=== PATIENT | female | born 1990 | race African-American/Black ===

== ENCOUNTER 2016-11-06 13:40 | Emergency (ER) | payer SELFPAY ==
[~2016-11-06] VITALS: Ht 154.9 cm; Wt 54.4 kg
[2016-11-06 14:09] VITALS: BP 143/87
--- NOTE | 2016-11-06 14:44 | RAD ---
Left foot 3 views. History: Left foot injury, pain 3 views were taken of the left foot. There is not evidence of acute fracture or osseous abnormality. Impression: 1. Negative left foot.
[2016-11-06] MEDS ORDERED: IBUPROFEN 800 MG TABLET. PO ONE (14:45)
--- NOTE | 2016-11-06 14:45 | RAD ---
Left ankle 3 views. History: Pain after a fall 3 views were taken of the left ankle. There is not evidence of an acute fracture or osseous abnormality. Impression: 1. No fracture noted in the left ankle.
--- NOTE | 2016-11-06 14:48 | PHYS DOC ---
Past Medical History Past Medical History: No Pertinent History Past Surgical History: No Surgical History Alcohol Use: Occasionally Drug Use: None Adult General Chief Complaint Chief Complaint: FOOT INJURY PAIN HPI HPI Patient is a 26 year old female presents to the emergency department stating that she was wearing 7inch heels and fell last night when she fell injuring her left foot in her left ankle. Patient is very dramatic upon entering the emergency department yelling screaming and carrying on. Patient is not allowing the nursing staff to obtain assessment in triage. Patient was belligerent with staff. Very uncooperative with nursing staff. Patients boyfriend at bedside attempting to calm patient with patient being belligerent with him. Review of Systems Review of Systems Constitutional: Denies fever or chills [] Eyes: Denies change in visual acuity, redness, or eye pain [] HENT: Denies nasal congestion or sore throat [] Respiratory: Denies cough or shortness of breath [] Cardiovascular: No additional information not addressed in HPI [] GI: Denies abdominal pain, nausea, vomiting, bloody stools or diarrhea [] : Denies dysuria or hematuria [] Musculoskeletal: Denies back pain. Left ankle and foot pain Integument: Denies rash or skin lesions [] Neurologic: Denies headache, focal weakness or sensory changes [] Endocrine: Denies polyuria or polydipsia [] Current Medications Current Medications Current Medications Medications (Trade) Dose Ordered Sig/[facility] Start Time Stop Time Status Last Admin Dose Admin Ibuprofen (Motrin) 800 mg 1X ONCE 11/06/16 14:45 11/06/16 14:46 DC 11/06/16 14:57 800 MG Allergies Allergies Allergies Coded Allergies Type Severity Reaction Last Updated Verified No Known Drug Allergies 11/06/16 No Physical Exam Physical Exam Constitutional: Well developed, well nourished, no acute distress, non-toxic appearance. [] HENT: Normocephalic, atraumatic, bilateral external ears normal, oropharynx moist, no oral exudates, nose normal. [] Eyes: PERRLA, EOMI, conjunctiva normal, no discharge. [] Neck: Normal range of motion, no tenderness, supple, no stridor. [] Cardiovascular:Heart rate regular rhythm, no murmur [] Lungs & Thorax: Bilateral breath sounds clear to auscultation [] Skin: Warm, dry, no erythema, no rash. [] Extremities: Left foot and Left ankle tenderness, no cyanosis, no clubbing, ROM intact, no edema. Patient with no redness, no swelling or discoloration noted. Patient is able to lift her leg up and move the leg from the knee area and swinging around in the emergency department. Peripheral pulses 2+ cap refill brisk less than 2 seconds. Patient does have good sensation to the toes. Neurologic: Alert and oriented X 3, normal motor function, normal sensory function, no focal deficits noted. [] Psychologic: Affect normal, judgement normal, mood normal. [] Current Patient Data Vital Signs Vital Signs Date Time Temp Pulse Resp B/P (MAP) Pulse Ox O2 Delivery O2 Flow Rate FiO2 11/06/16 14:09 98.0 94 24 100 Room Air 98.0 EKG EKG [] Radiology/Procedures Radiology/Procedures [][facility] [address] [place] [address] IMAGING REPORT Signed PATIENT: LEE OROZCO ACCOUNT: [id number] : 1990 LOCATION: ER AGE: 26 SEX: F EXAM STATUS: PRE ER ORD. PHYSICIAN: KY MENDOZA APRN REASON: fell in 7 inch heels PROCEDURE: ANKLE LEFT 3V Left ankle 3 views. History: Pain after a fall 3 views were taken of the left ankle. There is not evidence of an acute fracture or osseous abnormality. Impression: 1. No fracture noted in the left ankle. DICTATED and SIGNED BY: NITHIN HICKEY MD DATE: 11/06/16 1442 CC: KY MENDOZA APRN ~ [facility] [address] [place] [address] IMAGING REPORT Signed PATIENT: LEE OROZCO Jessica ACCOUNT: [id number] : 1990 LOCATION: ER AGE: 26 SEX: F EXAM STATUS: PRE ER ORD. PHYSICIAN: KY MENDOZA APRN REASON: left foot injury PROCEDURE: FOOT LEFT 3V Left foot 3 views. History: Left foot injury, pain 3 views were taken of the left foot. There is not evidence of acute fracture or osseous abnormality. Impression: 1. Negative left foot. DICTATED and SIGNED BY: NITHIN HICKEY MD DATE: 11/06/16 1443 CC: KY MENDOZA APRN ~ Course & Med Decision Making Course & Med Decision Making Pertinent Labs and Imaging studies reviewed. (See chart for details) X-rays were negative for any abnormalities per Dr. Badillo. Patient continues to be very dramatic here in the emergency department yelling at everybody coming into contact with her. Patient was not cooperative with assessments. While attempting to assess patient she did grab the providers shoulder to prevent assessment. Registration had entered the room patient was on the phone and told registration that they would have to wait to get her information. Registration waited outside the curtain for the patient to completed her call when registration entered the room the patient became very distraught and upset and yelling at the registration person. Telling the registration that that she was not going to provide her with information until she had some pain medication provided. Provider explained to patient that it had not been ordered at this time yet as patient began bouncing around in the will chair leaning forward. I provided my assistance at trying to keep her from flipping forward in the wheelchair by placing my hand on her upper arm. Patient stated that I was forcing her to stay seated in the chair. Security has been notified to talk with the patient in regards to further evaluation or being discharged.Patients medication was ordered for patient, patient will be discharged home in stable condition with recommendations to follow-up with orthopedic. Provider was unable to provide patient with radiology report as patient was uncooperative with my care and would become very distraught every time a provider of staff membered entered the room. Charge nurse Ricky was notified for further care of the patient. Patient will be discharged with recommendations for ibuprofen for pain and discomfort ice packs on 20 minutes off 20 minutes elevation as much as possible. Patient was provided with davidson wrap and crutches. Patient was requesting Omega prescription from charge, patients boyfriend continued to explain that she has nothing broken and he continues to state that he told her that she would not get anything stronger for pain unless there was something broken.. Patient had received ibuprofen prior to discharge. Upon discharge from the emergency department patient was calm upon being wheeled to the waiting room by daniienraciel. [] Dragon Disclaimer Dragon Disclaimer This electronic medical record was generated, in whole or in part, using a voice recognition dictation system. Departure Departure Impression: Primary Impression: Left ankle sprain Additional Impression: Sprain of foot, left Disposition: 01 HOME, SELF-CARE Condition: STABLE Referrals: AYM ANDRADE MD Patient Instructions: Ankle Sprain, [id number], Foot Sprain-Brief Additional Instructions: Your x-rays were negative for any bony abnormalities. Ice packs on 20 minutes off 20 minutes several times a day. Elevation as much as possible. Ibuprofen for pain and discomfort. Follow-up with orthopedic in the next week. Return back to emergency department as needed for signs and symptoms of become worse. Problem Qualifiers Primary Impression: Left ankle sprain Encounter type: initial encounter Involved ligament of ankle: unspecified ligament Qualified Codes: S93.402A - Sprain of unspecified ligament of left ankle, initial encounter Additional Impression: Sprain of foot, left Encounter type: initial encounter Qualified Codes: S93.602A - Unspecified sprain of left foot, initial encounter KY MENDOZA DESIGN/ANIMATION INSTRUCTOR Nov 06, 2016 14:48
== END 2016-11-06 15:22 | disposition home or self-care (01) ==
LOC: ER 13:40
DX: S93.402A Sprain of unspecified ligament of left ankle, initial encounter (principal); S93.602A Unspecified sprain of left foot, initial encounter; W01.0XXA Fall on same level from slipping, tripping and stumbling without subsequent striking against object, initial encounter; Y92.89 Other specified places as the place of occurrence of the external cause; Y93.01 Activity, walking, marching and hiking; Y99.8 Other external cause status
CPT/HCPCS: 73610; 73630; 99284